=== PATIENT | male | born 1940 | race Caucasian/White ===

== ENCOUNTER → 2017-06-18 | Outpatient (CLI) | payer MEDICARE ==
[~2017-06-18] MED LIST: ASPIRIN325 M1 PO; CHOLESTEROL MAN1 TAB PO; MEDROL 4MG. DOSE4 MG PO; METOPROLOL25 MG PO
--- NOTE | 2017-06-18 15:49 | RADIOLOGY REPORT PS360 ---
ANKLE-RT-3 VIEWS COMPARISON: None HISTORY: Right ankle pain after injury TECHNIQUE: AP lateral and oblique views FINDINGS: There is focal diffuse periosteal thickening of the lower fibula just above the lateral malleolus likely due to old healed nondisplaced fracture or stress fracture. There are small bone fragments just beneath the lateral malleolus due to old incompletely fused chip fractures. There is minimal spurring of the tip of medial malleolus. The overall ankle mortise appears grossly normal. There is no significant soft tissue swelling. IMPRESSION: Post traumatic changes of the right ankle as described, no definite acute fracture seen
--- NOTE | 2017-06-18 15:51 | RADIOLOGY REPORT PS360 ---
KNEE-3 VIEWS-RT COMPARISON: Right knee 07/14/2013 HISTORY: Right knee pain after injury TECHNIQUE: AP lateral and oblique views FINDINGS: The femoral condyles tibial plateau and head of the fibula appear intact. There is mild joint space narrowing both medially and laterally. There is faint calcification of the medial and lateral meniscus. There is minimal spurring of the medial tibial plateau. There is mild narrowing of patellofemoral space and there may be a small amount of fluid in the suprapatellar bursa. There is marked arteriosclerotic calcification of the popliteal artery and this was noted previously. IMPRESSION: Moderate degenerative changes of knee with chondrocalcinosis of the medial and lateral meniscus and possible small joint effusion suprapatellar bursa as noted. No acute fracture seen
--- NOTE | 2017-06-18 15:52 | RADIOLOGY REPORT PS360 ---
LOWER LEG-RT COMPARISON: None HISTORY: Right lower leg pain after injury TECHNIQUE: AP lateral view FINDINGS: The tibia and fibula appear intact with no acute fracture seen. Mild periosteal thickening of the lower fibula just above the lateral malleolus secondary to old healed fracture. The soft tissues are normal. IMPRESSION: Negative for acute fracture
== END ==
LOC: RAD 15:09
DX: M25.561 Pain in right knee (principal); M25.571 Pain in right ankle and joints of right foot; S99.911A Unspecified injury of right ankle, initial encounter; S89.92XA Unspecified injury of left lower leg, initial encounter

== ENCOUNTER → 2017-07-30 | Outpatient (CLI) | payer MEDICARE ==
--- NOTE | 2017-08-04 14:50 | RADIOLOGY REPORT PS360 ---
MRI-LOW EXT ANY JOINT W/O-RT MRI right ankle Ordering Physician: Job Marcano MD Patient Age: 77 years: Male HISTORY: RT ANKLE PAIN injured ankle 4 months ago with persistent pain pain is lateral on top of lateral malleolus.. TECHNIQUE: Multiplanar multisequence imaging 1.5 Viri MR. /nc COMPARISON :3 view right ankle and 2 view right lower leg radiograph from 06/27/2017 FINDINGS Old healed fracture distal fibula shaft is seen on plain films. On today's study Prominent healing bone about the inferior aspect of this fracture included at the very top of today's sagittal image. Increased fluid within joint effusion is seen about the anterior and anterolateral aspect of the ankle joint, as well as lateral to the subtalar joint region & just qdistal to the tip of lateral malleolus. Old plain films as well as MR show fragmentation off inferior to the tip of the lateral malleolus from old injury... Suspect there is a os subfibular contributing to the density off tip of lateral malleolus, along with some old dystrophic calcifications from old injury & possibly old fractures... The dome of the talus appears intact. Only slight chondral thinning suggested at lateral ankle joint mortise Abnormalities along the course of the peroneus tendons. Initially I question a large ossicle along the course thickened peroneus longus tendon just lateral to the calcaneus,- but on further review, this may actually be focal osseous protuberance or exostosis extending from the contiguous with lateral margin of the calcaneus which has incorporated into the peroneus longus tendon , (on axial image 4 sagittal image 7, 6.) Smaller ossicles/ osseous fragments are seen distal this point along the course of the peroneus longus tendon as it continues distal. . More distally beneath the cuboid. There are 2 accessory ossicle seen along the plantar, lateral aspect of cuboid. One clearly involves the peroneal longus tendon and likely reflects. (os peroneum) . The other is less clear qinvolve association and between the peroneus longus and peroneus brevis tendons but more likely involving peroneus longus. The peroneus brevis. I do not see any focal fluid collections or acute inflammation these regions of peroneus tendons. Slight Carbajal appearance at peroneus brevis. Tendon may reflect old interstitial tear. Unimpressive. . The posterior tibialis tendon appears intact. The carpals appear intact as do the cuneiform-metatarsal junction region. IMPRESSION 1. Focal fluid collection seen along & extending from anterolateral aspect of ankle joint; as well as fluid extending from the lateral aspect of subtalar joint.... Reflects joint effusion &.. Possible associatedq synovial cyst formation in these areas. 2. Chondral thinning & with joint space narrowing most evident at lateral/ aspect of the ankle joint. Suggest early arthritic changes here. It questionably related to the above 3.. Patient has numerous accessory ossicles throughout the foot but with ossicles & osseous irregularity most notable off the tip the lateral malleolus. os subscapularis here 4. Thickening of proximal portion peroneus longus tendon. Just lateral to the calcaneus focal osseous density appears to be incorporated into the peroneus longus tendon-this is either an ossicle within this tendon; or could be a an osseous protrusion from the lateral calcaneus as suggestion on axial image 14 Continuing distally there are other Small ossifications are seen elsewhere just distal to this point. (. Sagittal image 7,);. As well as then additional ossicle within more distally as this tendon along the inferior lateral aspect of cuboid. ( Sagittal 10 & 8, coronal 17,) These multiple ossicles/calcifications along course of this peroneus longus tendon yield unusual pattern overall.. However I do not see discrete inflammation or fluid along its course.-Thus these all may be merely incidental observation not related to the current symptoms. Correlation required. 4. The peroneus brevis tendon appears thin with upper normal signal which could reflect old interstitial tear conceivably. Likely Os peroneum near its insertion
== END ==
LOC: RAD 11:09
DX: M25.571 Pain in right ankle and joints of right foot (principal)